=== PATIENT | female | born 1985 ===

== ENCOUNTER 2016-11-19 13:45 | Emergency (ER) | payer BC ==
[2016-11-19 14:12] VITALS: BP 125/71
--- NOTE | 2016-11-19 14:59 | UC ---
Abdominal Pain Female HPI - HPI Summary HPI Summary: This is a 30 yo female with a h/o PCOS and recent oocyte retrieval for IVF process who presented with complaints of abdominal pain, n/v. She has been quite constipated for the last week or so. She reports that she had a small BM this am but it had been several days of no BM prior. She has severe nausea and occasional vomiting with any solid intake. She reports severe abdominal distention. She was having urinary hesitancy even before the procedure and was placed on Macrobid for suspected UTI at that time. Those symptoms have continued. - History of Current Complaint Chief Complaint: UCGI Stated Complaint: NAUSEA,STOMACH DISTENTION Hx Last Menstrual Period: 11/02/16 Allergies/Adverse Reactions: Allergies Allergy/AdvReac Type Severity Reaction Status Date / Time Codeine Allergy GI Upset Verified 11/19/16 14:13 Metoclopramide [From Reglan] Allergy GI Upset Verified 11/19/16 14:13 Morphine Allergy See Comment Verified 11/19/16 14:13 Prochlorperazine Allergy GI Upset Verified 11/19/16 14:13 [From Compazine] Home Medications: Home Medications Cabergoline 0.5 mg PO 11/19/16 [History] Docusate Sodium [Colace] 100 mg PO 11/19/16 [History] Nitrofurantoin Monohyd Macro [Macrobid] 100 mg PO 11/19/16 [History] Ondansetron HCl [Zofran 4 MG TAB] 4 mg PO 11/19/16 [History] PMH/Surg Hx/FS Hx/Imm Hx Endocrine History Of: Denies: Diabetes, Thyroid Disease Cardiovascular History Of: Denies: Cardiac Disorders, Hypertension Respiratory History Of: Reports: Asthma Denies: COPD GI/ History Of: Denies: Ulcer - Surgical History Surgical History: Yes Surgery Procedure, Year, and Place: cyst [id number], egg retreval - Social History Alcohol Use: Rare Substance Use Type: None Smoking Status (MU): Never Smoked Tobacco Review of Systems Constitutional: Fatigue Skin: Negative Eyes: Negative ENT: Negative Respiratory: Negative Cardiovascular: Negative Gastrointestinal: Abdominal Pain, Vomiting Genitourinary: Frequency Motor: Negative Neurovascular: Negative Musculoskeletal: Negative Neurological: Negative Psychological: Negative All Other Systems Reviewed And Are Negative: Yes Physical Exam Triage Information Reviewed: Yes Appearance: Pain Distress - mild to moderately uncomfortable Vital Signs: Initial Vital Signs Temp 98.7 F 11/19/16 14:04 Pulse 78 11/19/16 14:04 Resp 18 11/19/16 14:04 BP 125/71 11/19/16 14:04 Pulse Ox 100 11/19/16 14:04 Vital Signs Reviewed: Yes Respiratory: Positive: Chest non-tender, Lungs clear, Normal breath sounds. Negative: Crackles, Rhonchi, Wheezing Cardiovascular: Positive: RRR, No Murmur Abdomen Description: Positive: Distended, Other: - TTP over suprapubic region. Negative: CVA Tenderness (R), CVA Tenderness (L) Bowel Sounds: Positive: Hypoactive - Additional Comments Pelvic exam: External genitalia WNL Vaginal mucosa pink/moist Cervix visualized, no discharge R adnexa TTP with some fullness focally, no CMT Diagnostics - Laboratory Diagnostic Studies Completed/Ordered: XR abd - No distended small bowel, mod to severe constipation. UA - neg. HCG - neg Abd Pain Female Course/Dx - Course Course Of Treatment: This is an otherwise healthy 30 yo female who presented with complaints of abdominal pain with distention, nausea and occasional vomiting s/p egg harvesting procedure 3 days ago. KUB shows significant constipation, no SBO. Pelvic exam does demonstrate R adnexal TTP with associated fullness in that region. UA and HCG negative. Majority of her symptoms would be explained by severe constipation, but her adnexal tenderness is concerning for possible torsion, HCG is neg making ectopic unlikely. Recommended that she proceed to the ER for further evaluation. Patient does not wish to be seen in the ER at this time. She plans to try to relieve her constipation at home. She understands that if her symptoms get any worse that she should immediately proceed to the ER. AMA paperwork completed. - Differential Dx/Diagnosis Differential Diagnosis: Bowel Obstruction, Constipation, Ectopic , , Urinary Tract Infection, Other - ovarian torsion Provider Diagnoses: 1. Abdominal pain/distention. 2. Adnexal tenderness. 3. Severe constipation Discharge - Discharge Plan Condition: Stable Disposition: HOME Discharge Disposition Comment: AMA Patient Education Materials: Constipation (ED) Additional Instructions: Activity: As tolerated Instructions: 1. Please proceed to the emergency department for further evaluation 2. Use magnesium citrate and dulcolax suppositories to relieve constipation at home and then use daily Miralax until you are having regular daily bowel movements
--- NOTE | 2016-11-19 15:24 | RAD ---
Indication: Abdominal pain and distention. Nausea and vomiting. Question small bowel obstruction. Comparison: None. Technique: Supine abdomen. Report: Moderately large volume of stool throughout the colon. Negative for rectal distention. No dilated small bowel loops evident. No suspicious calcifications or mass effect. Unremarkable soft tissue contours. Clear lung bases. IMPRESSION: No evidence for small bowel obstruction. Moderately large volume of stool throughout the colon.
== END 2016-11-19 16:13 | disposition home or self-care (01) ==
LOC: MERGE 13:45 → UCEAST 13:45
DX: R14.0 Abdominal distension (gaseous) (principal); R10.2 Pelvic and perineal pain; K59.00 Constipation, unspecified; Z32.02 Encounter for pregnancy test, result negative; Z88.5 Allergy status to narcotic agent; Z88.8 Allergy status to other drugs, medicaments and biological substances
CPT/HCPCS: 74000; 81003; 84702; 99202; G0463

== ENCOUNTER 2016-11-21 10:00 | Emergency (ER) | payer BC ==
[2016-11-21 11:59] LABS: Urine Bilirubin Negative (Negative); Urine Glucose Negative (Negative); Urine Nitrite Negative (Negative)
[2016-11-21 12:17] LABS: Hematocrit 39 % (35-47); Hemoglobin 13.1 g/dl (12.0-16.0); Mean Corpuscular HGB Conc 34 g/dl (31-36); Mean Corpuscular Hemoglobin 27 pg (27-31); Mean Corpuscular Volume 79 fL (80-97); Mean Platelet Volume 9 um3 (7.4-10.4); Red Blood Count 4.95 10^6/ul (4.0-5.4); Red Cell Distribution Width 13 % (10.5-15); White Blood Count 8.3 10^3/ul (3.5-10.8)
--- NOTE | 2016-11-21 12:29 | RAD ---
Indication: IVF retrieval, pelvic pain. Real-time sonography of the pelvis was performed utilizing endovaginal technique. The uterus measures 8.3 x 3.4 x 4.6 cm. Endometrial echo measures 8 mm. The right ovary measures 6.0 x 6.5 x 10.5 cm. 14 follicles are noted in the right ovary. Plexus follicles are noted. In the right ovary the largest measures 2.6 x 2.3 x 2.6 cm, 2.7 x 2.0 x 2.9 cm and a hemorrhagic follicle with internal echo measures 1.9 x 1.8 x 2.0 cm. Left ovary measures 8.8 x 5.2 x 6.1 cm. 10 follicles are noted in the left ovary the largest measuring 2.1 x 1.9 x 3.5 cm, 2.7 x 2.2 x 2.5 cm and is echogenic follicle measuring 2.5 x 1.7 x 2.1 cm. Doppler interrogation demonstrates flow in both ovaries. No obvious hematoma is noted. IMPRESSION: Flow is noted in both ovaries. Multiple follicles in the enlarged ovaries are noted. Some hemorrhagic follicles are present.
[2016-11-21] MEDS ORDERED: Ketorolac INJ* 30 MG/ML 1 ML VIAL IV ONE (12:50)
--- NOTE | 2016-11-21 12:58 | ED ---
Abdominal Pain/Female - HPI Summary HPI Summary: Patient presents with abdominal pain for 5 days since she had an "egg harvesting " procedure for fertility. She presented to [facility] two days ago with pain where a pelvic exam and urine were negative for acute causes. An x-ray showed she was constipated so she was discharged with magnesium citrate, which has caused diminishing diarrhea. Her pain has continued in the RLQ > LLQ, so she called her PCP who referred her to the ED for an ultrasound. She has had a subjective fever, without vaginal discharge, urinary symptoms, N/V. No CP, SOB, or anorexia. - History of Current Complaint Chief Complaint: EDUrogenitalProblems Stated Complaint: ABD PAIN Time Seen by Provider: 11/21/16 10:46 Hx Obtained From: Patient Hx Last Menstrual Period: 11/02/16 ?: No Onset/Duration: Gradual Onset Timing: Constant Severity Initially: Mild Severity Currently: Moderate Pain Intensity: 3 Location: Discrete At: RLQ, Discrete At: LLQ Radiates: No Character: Dull Aggravating Factor(s): Nothing Alleviating Factor(s): Nothing Associated Signs and Symptoms: Positive: Negative Allergies/Adverse Reactions: Allergies Allergy/AdvReac Type Severity Reaction Status Date / Time Morphine Allergy Intermediate Rash Verified 08/21/12 20:00 Prochlorperazine Allergy Intermediate Unknown Verified 08/21/12 20:00 [From Compazine] Reaction Details Codeine Allergy Rash Verified 08/21/12 20:00 Escitalopram [From Lexapro] Allergy Headache Verified 01/17/16 08:49 Iodinated Contrast Media Allergy Unknown Verified 08/21/12 20:00 Reaction Details Metoclopramide [From Reglan] Allergy GI Upset Verified 11/19/16 14:13 PMH/Surg Hx/FS Hx/Imm Hx Endocrine/Hematology History: Denies: Hx Diabetes, Hx Thyroid Disease Cardiovascular History: Denies: Hx Hypertension Respiratory History: Reports: Hx Asthma Denies: Hx Chronic Obstructive Pulmonary Disease (COPD) GI History: Denies: Hx Ulcer History: Reports: Other Problems/Disorders - PCOS - Surgical History Surgery Procedure, Year, and Place: cyst [id number], egg retreval Infectious Disease History: No Infectious Disease History: Denies: Hx Hepatitis, Hx Human Immunodeficiency Virus (HIV), Traveled Outside the [place] in Last 30 Days - Family History Known Family History: Positive: None Family History: NON CONTRIBUTORY - Social History Occupation: Employed Full-time Lives: With Family Alcohol Use: Rare Substance Use Type: Reports: None Smoking Status (MU): Never Smoked Tobacco Review of Systems Positive: Chills. Negative: Fever Negative: Chest Pain Negative: Shortness Of Breath Positive: Abdominal Pain. Negative: Vomiting, Nausea Positive: no symptoms reported Negative: Myalgia Negative: Bruising Negative: Headache, Weakness, Paresthesia All Other Systems Reviewed And Are Negative: Yes Physical Exam Triage Information Reviewed: Yes Vital Signs On Initial Exam: Initial Vitals Temp Pulse Resp BP Pulse Ox 99.4 F 82 16 121/75 100 11/21/16 10:02 11/21/16 10:02 11/21/16 10:02 11/21/16 10:02 11/21/16 10:02 Vital Signs Reviewed: Yes Appearance: Positive: Well-Appearing, Well-Nourished, Pain Distress Skin: Positive: Warm, Skin Color Reflects Adequate Perfusion, Dry, Soft Head/Face: Positive: Normal Head/Face Inspection Eyes: Positive: EOMI, JULIO, Conjunctiva Clear ENT: Positive: Hearing grossly normal Neck: Positive: Supple, Nontender Respiratory/Lung Sounds: Positive: Clear to Auscultation, Breath Sounds Present Cardiovascular: Positive: RRR Abdomen Description: Positive: Soft. Negative: Nontender - mild TTP RLQ and LLQ , CVA Tenderness (R), CVA Tenderness (L), Distended, Guarding Bowel Sounds: Positive: Present Musculoskeletal: Negative: Edema Left, Edema Right Neurological: Positive: Sensory/Motor Intact, Alert, Oriented to Person Place, Time, NV Bundle Intact Distally, Normal Gait Psychiatric: Positive: Affect/Mood Appropriate AVPU Assessment: Alert - [place] Coma Scale Coma Scale Total: 15 Diagnostics - Vital Signs Vital Signs Temp Pulse Resp BP Pulse Ox 11/21/16 11:00 72 109/66 99 11/21/16 10:32 76 121/74 98 11/21/16 10:30 80 97 11/21/16 10:02 99.4 F 82 16 121/75 100 - Laboratory Lab Results: Lab Results 11/21/16 11/21/16 11/21/16 Range/Units 11:30 12:10 12:10 WBC 8.3 (3.5-10.8) 10^3/ul RBC 4.95 (4.0-5.4) 10^6/ul Hgb 13.1 (12.0-16.0) g/dl Hct 39 (35-47) % MCV 79 L (80-97) fL MCH 27 (27-31) pg MCHC 34 (31-36) g/dl RDW 13 (10.5-15) % Plt Count 255 (150-450) 10^3/ul MPV 9 (7.4-10.4) um3 Neut % (Auto) 67.3 (38-83) % Lymph % (Auto) 21.6 L (25-47) % [place] % (Auto) 6.2 (1-9) % Eos % (Auto) 3.0 (0-6) % Baso % (Auto) 1.9 (0-2) % Absolute Neuts (auto) 5.6 (1.5-7.7) 10^3/ul Absolute Lymphs (auto) 1.8 (1.0-4.8) 10^3/ul Absolute Monos (auto) 0.5 (0-0.8) 10^3/ul Absolute Eos (auto) 0.2 (0-0.6) 10^3/ul Absolute Basos (auto) 0.2 (0-0.2) 10^3/ul Absolute Nucleated RBC 0 10^3/ul Nucleated RBC % 0 Sodium Cancelled Potassium Cancelled Chloride Cancelled Carbon Dioxide Cancelled Anion Gap Cancelled BUN Cancelled Creatinine Cancelled Est GFR ( Amer) Cancelled Est GFR (Non-Af Amer) Cancelled BUN/Creatinine Ratio Cancelled Glucose Cancelled Calcium Cancelled Total Bilirubin Cancelled AST Cancelled ALT Cancelled Alkaline Phosphatase Cancelled C-Reactive Protein Cancelled Total Protein Cancelled Albumin Cancelled Globulin Cancelled Albumin/Globulin Ratio Cancelled Urine Color Yellow Urine Appearance Clear Urine pH 6.0 (5-9) Ur Specific Walker 1.021 (1.010-1.030) Urine Protein Negative (Negative) Urine Ketones Negative (Negative) Urine Blood Negative (Negative) Urine Nitrate Negative (Negative) Urine Bilirubin Negative (Negative) Urine Urobilinogen Negative (Negative) Ur Leukocyte Esterase Negative (Negative) Urine Glucose Negative (Negative) Result Diagrams: 11/21/16 12:10 11/21/16 12:50 Lab Statement: Any lab studies that have been ordered have been reviewed, and results considered in the medical decision making process. - Ultrasound No standard instances Ultrasound Interpretation: Positive (See Comments) Ultrasound Interpretation Completed By: Radiologist - Multiple follicles noted on right ovary, of which some are hemorrhagic. Abdominal Pain Fem Course/Dx - Course Course Of Treatment: I spoke with the patient's fertility specialist's practice , who were satified with the US and labs results, and did not request any further testing. She is advised to continue regular medications and to follow- up with their office as scheduled. - Diagnoses Differential Diagnosis: Positive: Appendicitis, Bowel Obstruction, Constipation , Ectopic , Ovarian Cyst, Pelvic Inflammatory Disease, Peptic Ulcer Disease, , Renal Colic, Urinary Tract Infection Provider Diagnoses: Abdominal pain Discharge - Discharge Plan Condition: Stable Disposition: HOME Patient Education Materials: Abdominal Pain (ED) Referrals: Haile Dewey MD [Primary Care Provider] - Additional Instructions: As per Dr. Jordan office, continue your medications as prescribed. You can use ibuprofen or Naproxen for pain. These work best when used consistently over a few days. Follow-up with Dr. Jordan as scheduled and your PCP as needed. Return to the emergency department if symptoms worsen.
[2016-11-21 13:21] LABS: BUN/Creatinine Ratio 15.3 (8-20); C Reactive Protein 5.11 mg/L (< 5.00); EGFR Non-African American 120.5 (>60); Globulin 2.9 g/dL (2-4); Potassium 3.6 mmol/L (3.5-5.0); Total Bilirubin 0.4 mg/dL (0.2-1.0); Total Protein 6.9 g/dL (6.4-8.9)
[2016-11-21 13:50] VITALS: BP 112/60
== END 2016-11-21 13:46 | disposition home or self-care (01) ==
LOC: ED 10:00 → MERGE 10:00 → ED 13:46
DX: R10.30 Lower abdominal pain, unspecified (principal)
CPT/HCPCS: 36415; 76830; 80053; 81003; 85025; 86140; 96374; 99282